=== PATIENT | female | born 1980 | race Caucasian/White ===

== ENCOUNTER → 2020-03-15 09:47 | Outpatient (CLI) | payer BC, SELFPAY ==
--- NOTE | ~2020-03-15 | US_ITS ---
EXAMINATION: US transvaginal DATE: 03/15/2020 10:26 INDICATION: Excessive and frequent menstruation with regular cycle. TECHNIQUE: Multiple transvaginal sonographic images of the pelvis were obtained. COMPARISON: Ultrasound 05/19/2016 FINDINGS: The uterus measures 8.5 x 4.8 x 4.9 cm. There is no free fluid in the pelvis. The endometrial complex measures 11 mm in thickness. The right ovary measures 2.8 x 1.5 x 1.4 cm. The left ovary measures 2. 5 x 2.9 x 2.1 cm. There is normal vascular flow in the ovaries. IMPRESSION: 1. Normal pelvis. Reviewed, dictated and finalized at location A. IMPRESSION: 1. Normal pelvis.
== END ==
PROVIDERS: Visit Provider Obstetrics & Gynecology
DX: N92.0 Excessive and frequent menstruation with regular cycle (principal)
CPT/HCPCS: 76830

== ENCOUNTER → 2020-07-29 13:33 | Outpatient (CLI) | payer BC, SELFPAY ==
--- NOTE | ~2020-07-29 | MM_ITS ---
EXAMINATION: MM scrn terrance implant BI w [place] HISTORY: Screening mammogram TECHNIQUE: Craniocaudal and mediolateral oblique 3-D tomosynthesis images with implant displacement a nd synthetic 2-D images were generated. Craniocaudal and mediolateral oblique views of the breasts wi thout implant displacement were obtained using full field digital mammography. CAD analysis was submi tted and interpreted. COMPARISON: 06/08/2019 BREAST PARENCHYMAL COMPOSITION: The breasts are almost entirely fatty. FINDINGS: There is no evidence of suspicious mass, calcification, or architectural distortion to sugg est malignancy in either breast. There has been no suspicious interval change. IMPRESSION: 1. No mammographic evidence of malignancy. 2. Recommend routine screening mammography in one year. BI-RADS Category 1: Negative Reviewed, dictated and finalized at location A. E TAMPER
== END ==
PROVIDERS: Visit Provider Obstetrics & Gynecology
DX: Z12.31 Encounter for screening mammogram for malignant neoplasm of breast (principal)
CPT/HCPCS: 77063; 77067

== ENCOUNTER → 2022-01-25 12:13 | Outpatient (CLI) | payer BC, SELFPAY ==
--- NOTE | ~2022-01-25 | MMUS_ITS ---
EXAMINATION: MM diag terrance implant BI w [place], US breast RT limited HISTORY: Palpable right breast abnormality. TECHNIQUE: Additional 3-D tomosynthesis images of the breasts were performed and synthetic 2-D images were generated. CAD analysis was submitted and interpreted. High resolution Limited right breast ult rasound was performed. COMPARISON: Comparison to multiple prior studies sequentially, with oldest reviewed study dated 05/27. BREAST PARENCHYMAL COMPOSITION: Breast composed of scattered areas of fibroglandular density FINDINGS: MAMMOGRAPHIC FINDINGS: The breasts are stable. No suspicious masses, calcifications or architectural distortion in either br east to suggest malignancy. There are bilateral subpectoral silicone implants. ULTRASOUND: Limited right breast ultrasound: In the area of palpable concern in the right breast at 6-7:00, 7 cm from the nipple, there is an oval hypoechoic mass with parallel orientation measuring 1.4 x 0.5 x 1.6 cm. There is mixed posterior attenuation. No internal vascularity. IMPRESSION: 1. Solid oval hypoechoic right breast mass at 6-7:00, 7 cm from the nipple. 2. Ultrasound-guided right breast biopsy recommended. BI-RADS category 4, suspicious findings. Reviewed, dictated and finalized at location A. IMPRESSION: 1. Solid oval hypoechoic right breast mass at 6-7:00, 7 cm from the nipple. 2. Ultrasound-guided right breast biopsy recommended. BI-RADS category 4, suspicious findings.
== END ==
PROVIDERS: PCP Obstetrics & Gynecology Gynecology
DX: N63.20 Unspecified lump in the left breast, unspecified quadrant (principal); N63.15 Unspecified lump in the right breast, overlapping quadrants; R92.8 Other abnormal and inconclusive findings on diagnostic imaging of breast
CPT/HCPCS: 76642; 77062; 77066; G0279

== ENCOUNTER 2022-03-09 12:51 | Outpatient (CLI) | payer BC, SELFPAY ==
--- NOTE | ~2022-03-09 | MMUS_ITS ---
EXAMINATION: US GUIDED NEEDLE BIOPSY DATE: 03/09/2022 14:47 CDT INDICATION: 6-7:00 right breast mass TECHNIQUE AND FINDINGS: The risks, including bleeding and implant injury, and potential benefits of the procedure were discus sed with the patient, and written informed consent was obtained. Timeout procedure was performed. Aft er sterile preparation of the right breast, 1% lidocaine was utilized for local anesthesia. A 14G spring-loaded biopsy gun needle was advanced to the anterior edge of the region of interest fro m inferomedial approach utilizing sonographic guidance. A total of three tissue core samples were ob tained through the lesion. An Inrad tissue marker clip was then placed at the biopsy site. Hemostasi s was achieved. A sterile bandage was applied. The patient tolerated procedure well and there was no evidence of immediate complication. The patien t was given verbal instructions prior to departing from the department. A two view mammogram was perf ormed to document tissue marker clip placement. The tissue samples were submitted to surgical patholo gy for histologic analysis. IMPRESSION: 1. Successful ultrasound guided biopsy of right 6 7 7:00 breast mass with biopsy marker placement. P leed refer to pathology report for histologic analysis. Reviewed, dictated and finalized at Location A. Reviewed, dictated and finalized at location A. IMPRESSION: 1. Successful ultrasound guided biopsy of right 6 7 7:00 breast mass with biop sy marker placement. Please refer to pathology report for histologic analysis.
== END 2022-03-09 12:52 | disposition home or self-care (01) ==
PROVIDERS: PCP Obstetrics & Gynecology Gynecology; Visit Provider Surgery
DX: N63.10 Unspecified lump in the right breast, unspecified quadrant (principal)
CPT/HCPCS: 19083; 88305; A4648

== ENCOUNTER → 2022-11-19 09:15 | Outpatient (CLI) | payer BC, SELFPAY ==
--- NOTE | ~2022-11-19 | MMUS_ITS ---
EXAMINATION: MM diag terrance implant BI w [place], US breast LT limited HISTORY: History of recent benign breast biopsy TECHNIQUE: Craniocaudal, mediolateral, and mediolateral oblique 3-D tomosynthesis images with implant displacement of the breasts were performed and synthetic 2-D images were generated. Craniocaudal, m ediolateral oblique, and mediolateral views of the breasts without implant displacement were obtained using full field digital mammography. CAD analysis was submitted and interpreted. High resolution li mited left breast ultrasound was performed. COMPARISON: 01/25/2022, 07/29/2020, 06/08/2019 BREAST PARENCHYMAL COMPOSITION: There are scattered areas of fibroglandular density. FINDINGS: MAMMOGRAPHIC FINDINGS: Right breast: No suspicious mass, calcification, or architectural distortion are identified to sugges t malignancy. Interval biopsy change is noted. Left breast: An asymmetry is present in the lower-outer breast on the implant displaced mediolateral oblique view. No suspicious calcification or architectural distortion are identified. ULTRASOUND: There is a questionable intramammary lymph node at the 5:00 location, 4 cm from the nipple in the lef t breast in the area of the mammographic finding. IMPRESSION: 1. Possible intramammary lymph node of the left breast. 2. Recommend 6 month follow-up left diagnostic mammogram and ultrasound. BI-RADS category 3, probably benign findings. Reviewed, dictated and finalized at location A. IMPRESSION: 1. Possible intramammary lymph node of the left breast. 2. Recommend 6 month follow-up left diagnostic mammogram and ultrasound. BI-RADS category 3, probably benign findings.
== END ==
PROVIDERS: PCP Obstetrics & Gynecology Gynecology; Visit Provider Obstetrics & Gynecology Gynecology
DX: N64.59 Other signs and symptoms in breast (principal)
CPT/HCPCS: 76642; 77062; 77066; G0279

== ENCOUNTER → 2023-05-23 08:18 | Outpatient (CLI) | payer BC, SELFPAY ==
--- NOTE | ~2023-05-23 | MMUS_ITS ---
EXAMINATION: MM diag terrance implant LT w [place], US breast LT limited HISTORY: Six-month follow-up of possible intramammary lymph node of left breast 5:00 4 cm from nipple in the area of mammographic asymmetry noted on implant displaced MLO view of 11/19/2022 mammogram TECHNIQUE: Implant displaced ML, MLO and CC 3-D tomosynthesis images of the left breast were performe d and synthetic 2-D images were generated. Implant ML, MLO and CC views. CAD analysis was submitted a nd interpreted. High resolution left subareolar and lower inner quadrant breast ultrasound was perfor med. COMPARISON: 11/19/2022 diagnostic implant mammogram 11/19/2022 and limited left breast ultrasound BREAST PARENCHYMAL COMPOSITION: There are scattered areas of fibroglandular density. FINDINGS: MAMMOGRAPHIC FINDINGS: Stable focal asymmetry is again noted posteriorly in the lower inner quadrant of the left breast post eriorly, not significantly changed compared to 11/19/2022 Otherwise no suspicious mass, architectural distortion, malignant calcification, skin or retraction. ULTRASOUND: There is no significant interval change in appearance of an approximately 5 x 12 mm probable intramam kinsey lymph node in the 4-5:00 area proxy 4 to 5 cm from the nipple since 11/19/2022. IMPRESSION: 1. Probably benign finding 2. Another six-month diagnostic left mammogram and targeted left breast ultrasound examination with r ight mammographic views for screening purposes as well is recommended BI-RADS category 3, probably benign findings. Reviewed, dictated and finalized at location A. VERY RECRUITER IMPRESSION: 1. Probably benign finding 2. Another six-month diagnostic left mammogram and targeted left breast ultraso und examination with right mammographic views for screening purposes as well is recommended BI-RADS category 3, probably benign findings.
== END ==
PROVIDERS: PCP Obstetrics & Gynecology Gynecology; Visit Provider Obstetrics & Gynecology Gynecology
DX: R92.8 Other abnormal and inconclusive findings on diagnostic imaging of breast (principal)
CPT/HCPCS: 76642; 77061; 77065; G0279

== ENCOUNTER 2023-10-25 09:36 | Outpatient (CLI) | payer BC, SELFPAY ==
--- NOTE | ~2023-10-25 | MR_ITS ---
EXAMINATION: MR lumbar spine wo con DATE: 10/25/2023 10:10 INDICATION: Low back pain. TECHNIQUE: Magnetic resonance imaging (MRI) of the lumbar spine was performed without intravenous con trast. Sequences included sagittal T2-weighted FSE, sagittal T2-weighted FS FSE, sagittal T1-weighted FSE, and axial T2-weighted FSE. COMPARISON: None FINDINGS: Bone alignment is normal. Vertebral body heights are normal. Intervertebral disc heights ar e normal. The distal spinal cord signal intensity is normal. The conus medullaris is at L1. The follo wing disc levels are specifically discussed: L1-L2: The disc does not extend beyond the endplate margin. There is mild bilateral facet joint osteo arthritis. There is no neural foraminal stenosis. There is no central canal stenosis. L2-L3: The disc does not extend beyond the endplate margin. There is mild bilateral facet joint osteo arthritis. There is no neural foraminal stenosis. There is no central canal stenosis. L3-L4: The disc does not extend beyond the endplate margin. There is mild bilateral facet joint osteo arthritis. There is no neural foraminal stenosis. There is no central canal stenosis. L4-L5: There is a left foraminal protrusion with annular fissure. There is mild bilateral facet joint osteoarthritis. There is mild left neural foraminal stenosis. There is no central canal stenosis. L5-S1: The disc does not extend beyond the endplate margin. There is mild bilateral facet joint osteo arthritis. There is no neural foraminal stenosis. There is no central canal stenosis. IMPRESSION: 1. Mild lumbar spondylosis. Reviewed, dictated and finalized at location A. IMPRESSION: 1. Mild lumbar spondylosis.
== END 2023-10-25 09:37 ==
PROVIDERS: PCP Physician Assistant; Visit Provider Physician Assistant
DX: M53.3 Sacrococcygeal disorders, not elsewhere classified (principal); M47.896 Other spondylosis, lumbar region
CPT/HCPCS: 72148

== ENCOUNTER 2023-12-12 10:15 | Outpatient (CLI) | payer BC, SELFPAY ==
--- NOTE | ~2023-12-12 | US_ITS ---
EXAMINATION: US pelvic complete w TV DATE: 12/12/2023 10:42 INDICATION: LOW BACK AND PELVIC PAIN TECHNIQUE: Multiple transabdominal and endovaginal sonographic images of the pelvis were obtained. COMPARISON: 03/15/2020 FINDINGS: Uterus: 9.4 x 5.0 x 4.3 cm. Endometrial complex measures 5 mm. The endometrial cavity near the fundus is distended by hypoechoic material, measuring up to 5 mm. Right Ovary: 3.2 x 2.4 x 2.7 cm. Vascular flow is present. 2.2 cm simple cyst. Left Ovary: 2.4 x 2.3 x 2.2 cm. Vascular flow is present. No adnexal mass. There is no free fluid in the pelvis. IMPRESSION: The endometrial cavity is minimally distended by hypoechoic material, may represent blood, LMP 11/29/19 24, correlate for history of abnormal bleeding. An endometrial polyp could appear similarly, consider sonohysterography or sonographic follow-up after appropriate cycling to assess for resolution. 2.2 cm simple right ovarian cyst. Otherwise normal pelvic sonogram findings. Reviewed, dictated and finalized at location K. IMPRESSION: The endometrial cavity is minimally distended by hypoechoic material, may repre sent blood, LMP 11/29/2023, correlate for history of abnormal bleeding. An endome trial polyp could appear similarly, consider sonohysterography or sonographic f ollow-up after appropriate cycling to assess for resolution. 2.2 cm simple right ovarian cyst. Otherwise normal pelvic sonogram findings.
== END 2023-12-12 10:16 ==
LOC: GOSHIMG 10:16
PROVIDERS: PCP Physician Assistant; Visit Provider Obstetrics & Gynecology Gynecology
DX: N83.291 Other ovarian cyst, right side (principal)
CPT/HCPCS: 76830; 76856

== ENCOUNTER 2024-01-03 07:59 | Outpatient (CLI) | payer BC, SELFPAY ==
--- NOTE | ~2024-01-03 | MMUS_ITS ---
EXAMINATION: MM diag terrance implant BI w [place], US breast LT limited HISTORY: Follow-up left breast mass TECHNIQUE: Additional 3-D tomosynthesis images of the left breast were performed and synthetic 2-D im ages were generated. CAD analysis was submitted and interpreted. High resolution Limited left breast ultrasound was performed. COMPARISON: Comparison to multiple prior studies sequentially, with oldest reviewed study dated 11/19. BREAST PARENCHYMAL COMPOSITION: Not dense: There are scattered areas of fibroglandular density. FINDINGS: MAMMOGRAPHIC FINDINGS: The breasts are stable. Focal asymmetry in the lower central aspect of the left breast is unchanged f rom prior examination. No new masses or architectural distortion. No suspicious calcifications. Breas t implants are present. There is no mammographic evidence for malignancy in the right breast. ULTRASOUND: Limited left breast ultrasound: Stable oval parallel oriented hypoechoic 1.3 cm mass with echogenic h ilum at 4:00, 5 cm from the nipple without significant change from prior study allowing for technique , likely benign intramammary lymph node. IMPRESSION: 1. Stable likely benign left breast mass at 4:00, 5 cm from the nipple measuring 1.3 cm. 2. Given one year of interval stability, recommend 12 month followup bilateral mammogram and Limited left breast ultrasound recommended. BI-RADS category 3, probably benign findings. Reviewed, dictated and finalized at location B. IMPRESSION: 1. Stable likely benign left breast mass at 4:00, 5 cm from the nipple measurin g 1.3 cm. 2. Given one year of interval stability, recommend 12 month followup bilateral mammogram and Limited left breast ultrasound recommended. BI-RADS category 3, probably benign findings.
== END 2024-01-03 08:00 ==
LOC: MICIMG 08:01
PROVIDERS: PCP Obstetrics & Gynecology Gynecology; Visit Provider Obstetrics & Gynecology Gynecology
DX: R92.8 Other abnormal and inconclusive findings on diagnostic imaging of breast (principal)
CPT/HCPCS: 76642; 77062; 77066; G0279